=== PATIENT | male | born 1950 | race Caucasian/White ===

== ENCOUNTER 2018-01-08 11:00 | Emergency (ER) | payer OTHER ==
[2018-01-08 11:54] VITALS: BP 128/71; PULSE 68; RESP 18; TEMP 98.9; O2SAT 98
--- NOTE | 2018-01-08 12:34 | C.PDOC ---
History Of Present Illness 67 y/o male presents to ED with c/o dental pain 10/10 for 3 days radiating to left ear. Patient states he broke front tooth, broke ridge of multiple teeth and has trouble eating. Patient denies fever, chills, nausea, vomiting or any other complaints at this time. Time Seen by Provider: 01/08/18 11:57 Chief Complaint (Nursing): Dental Pain History Per: Patient History/Exam Limitations: no limitations Onset/Duration Of Symptoms: Days Current Symptoms Are (Timing): Still Present Quality: Positive for: "Pain" Past Medical History Reviewed: Historical Data, Nursing Documentation, Vital Signs Vital Signs: Last Vital Signs Temp 98.9 F 01/08/18 11:42 Pulse 68 01/08/18 11:42 Resp 18 01/08/18 11:42 BP 128/71 01/08/18 11:42 Pulse Ox 98 01/08/18 12:48 - Medical History PMH: No Chronic Diseases Surgical History: No Surg Hx Family History: States: No Known Family Hx - Social History Hx Alcohol Use: No Hx Substance Use: No - Immunization History Hx Tetanus Toxoid Vaccination: No Hx Influenza Vaccination: No Hx Pneumococcal Vaccination: No Review Of Systems Constitutional: Negative for: Fever, Chills ENT: Positive for: Mouth Pain Gastrointestinal: Negative for: Nausea, Vomiting Skin: Negative for: Rash Physical Exam - Physical Exam Appears: Non-toxic, No Acute Distress Skin: Warm, Dry, No Rash Head: Atraumatic, Normacephalic Eye(s): bilateral: Normal Inspection Oral Mucosa: Moist Teeth: Other (Left frontal tooth broken. Upper right molar missing. Upper left molar ridge missing ) Neurological/Psych: Oriented x3, Normal Speech, Normal Cognition ED Course And Treatment O2 Sat by Pulse Oximetry: 98 (RA) Pulse Ox Interpretation: Normal Progress Note: Tylenol, Motrin and Penicillin administered. Patient discharged with list of outpatient Dentist list to . Disposition Counseled Patient/Family Regarding: Diagnosis, Need For Followup, Rx Given - Disposition Referrals: [employer] [Outside] Disposition: HOME/ ROUTINE Disposition Time: 12:42 Condition: STABLE Additional Instructions: Please follow up with a dentist. Prescriptions: Ibuprofen [Motrin] 600 mg PO TID #15 tab Penicillin VK [Pen-Vee K] 2 tab PO BID #28 tab traMADol/Acetaminophen [Ultracet 37.5/325 mg] 2 tab PO HS PRN #6 tab PRN Reason: pain Instructions: Fractured Tooth (DC) Forms: [facility] (Bel[place]ian), General Discharge Instructions - POA Present On Arrival: None - Clinical Impression Clinical Impression: Dental caries, Fracture, tooth - Scribe Statement The provider has reviewed the documentation as recorded by the Scribe Jakob Lauren All medical record entries made by the Scribe were at my direction and personally dictated by me. I have reviewed the chart and agree that the record accurately reflects my personal performance of the history, physical exam, medical decision making, and the department course for this patient. I have also personally directed, reviewed, and agree with the discharge instructions and disposition.
== END 2018-01-08 12:52 | disposition home or self-care (01) ==
LOC: C.ER 11:00
DX: S02.5XXA Fracture of tooth (traumatic), initial encounter for closed fracture (principal); K02.9 Dental caries, unspecified; X58.XXXA Exposure to other specified factors, initial encounter